=== PATIENT | female | born 1970 | race Asian ===

== ENCOUNTER 2020-06-07 13:55 | Emergency (ER) | payer OTHER ==
[2020-06-07 14:06] VITALS: BMI 23.0
[2020-06-07 16:14] LABS: BASO % 0.5 % (0-2.0); EOS % 0.8 % (0-4.5); HEMATOCRIT 35.9 % (32.4-45.2); HEMOGLOBIN 12.1 GM/dL (10.7-15.3); LYMPH % 28.8 % (8-40); MCH 29.8 pg (25.7-33.7); MCHC 33.7 g/dl (32.0-36.0); MEAN CELL VOLUME 88.5 fl (80-96); MEAN PLT VOLUME 8.6 fl (7.5-11.1); MONO % 6.8 % (3.8-10.2); NEUT % 63.1 % (42.8-82.8); PLATELET COUNT 252 K/MM3 (134-434); RBC 4.06 M/mm3 (3.60-5.2); RDW 11.9 % (11.6-15.6); WHITE BLOOD COUNT 5.5 K/mm3 (4.0-10.0)
[2020-06-07 16:20] LABS: INR 0.95 (0.83-1.09); PROTHROMBIN TIME (PATIENT) 11.7 SEC (9.7-13.0)
[2020-06-07 16:22] LABS: ACTIVATED PTT 29.5 SECONDS (25.2-36.5)
[2020-06-07 16:25] LABS: VENOUS BASE EXCESS 0.8 mmol/L (-2-2); VENOUS PCO2 51.8 mmHg (38-52); VENOUS PH 7.346 (7.310-7.410)
[2020-06-07 16:34] LABS: CHLORIDE 104 mmol/L (98-107); POTASSIUM 3.6 mmol/L (3.5-5.1); SODIUM 140 mmol/L (136-145)
[2020-06-07 16:36] LABS: ALBUMIN 3.5 g/dl (3.4-5.0); ANION GAP 8 MMOL/L (8-16); BLOOD UREA NITROGEN 8.3 mg/dL (7-18); CO2 29 mmol/L (21-32); GLUCOSE,RANDOM 254 mg/dL (74-106)
[2020-06-07 16:38] LABS: BILIRUBIN,DIRECT 0.2 mg/dL (0.0-0.2); SGPT/ALT 55 U/L (13-61)
[2020-06-07 16:39] LABS: CREATININE 0.6 mg/dL (0.55-1.3); SGOT/AST 29 U/L (15-37)
[2020-06-07 16:41] LABS: ALK PHOS 102 U/L (45-117); BILIRUBIN,TOTAL 0.2 mg/dL (0.2-1); LDH 266 U/L (84-246)
[2020-06-07] MEDS ORDERED: BAMLANIVIMAB 700 MG in SODIUM CHLORIDE 180 ML IVPB ONE (16:49)
[2020-06-07] MEDS ORDERED: ACETAMINOPHEN 500 MG TABLET (FP) PO ONE (17:05)
[2020-06-07] MEDS ORDERED: ACETAMINOPHEN 325 MG TABLET (FP) ONE (17:36)
[2020-06-07 18:37] VITALS: TEMP 98.6
[2020-06-07 21:01] VITALS: BP 160/96; PULSE 92
== END 2020-06-07 21:00 | disposition home or self-care (01) ==
LOC: JER 13:55
PROC: 3E0337Z Introduction of Electrolytic and Water Balance Substance into Peripheral Vein, Percutaneous Approach (ICD-10-PCS; principal; 2020-06-07)
DX: U07.1 COVID-19 (principal); R91.8 Other nonspecific abnormal finding of lung field
CPT/HCPCS: 36415; 71045-TC-FY; 80053; 82248; 82550; 82728; 82803; 83605; 83615; 84484; 85025; 85379; 85610; 85730; 86140; 93005; 93010; 99285-25; C9803; Q0239; U0003

== ENCOUNTER → 2022-08-05 | Day surgery (SDC) | payer OTHER | END | disposition home or self-care (01) | LOC: JRADIR 09:57 | PROVIDERS: ATTEND Internal Medicine Endocrinology, Diabetes & Metabolism | PROC: 0G9H3ZX Drainage of Right Thyroid Gland Lobe, Percutaneous Approach, Diagnostic (ICD-10-PCS; principal; 2022-08-05) | DX: E04.1 Nontoxic single thyroid nodule (principal) | CPT/HCPCS: 10005; 76942; 88173; 88305-TC ==

== ENCOUNTER 2023-11-20 19:08 | Emergency (ER) | payer OTHER ==
[2023-11-20 19:16] VITALS: BP 137/46; PULSE 98; RESP 20; TEMP 98; BMI 23.0
== END 2023-11-20 20:58 | disposition home or self-care (01) ==
LOC: JERFT 19:08 → JER 19:08 → JERFT 20:58
DX: S82.832A Other fracture of upper and lower end of left fibula, initial encounter for closed fracture (principal); V86.55XA Driver of 3- or 4- wheeled all-terrain vehicle (ATV) injured in nontraffic accident, initial encounter
CPT/HCPCS: 73610-TC-LT-FY; 73630-TC-LT; 99283-25

== ENCOUNTER 2023-11-26 06:01 | Day surgery (SDC) | payer OTHER ==
[2023-11-25 09:58] VITALS: BMI 23.0
[2023-11-26] MEDS ORDERED: MIDAZOLAM HCL 2 MG/2 ML SINGLE DOSE VIAL ONE ×2 (07:05→09:45)
[2023-11-26] MEDS ORDERED: PROPOFOL 20 ML ONE ×2 (07:05→09:46)
[2023-11-26] MEDS ORDERED: BUPIVACAINE LIPOSOME/PF (EXPAREL) 266 MG/20 ML VIAL ONE (07:14)
[2023-11-26] MEDS ORDERED: BUPIVACAINE HCL/PF 0.5% (5 MG/ML) 30 ML VIAL IJ ONE (07:14)
[2023-11-26] MEDS ORDERED: ACETAMINOPHEN INJECTION 100 ML IVPB ONE (07:14)
[2023-11-26] MEDS ORDERED: ONDANSETRON 4 MG/2 ML VIAL IVPUSH PRN (07:44)
[2023-11-26] MEDS ORDERED: ACETAMINOPHEN 325 MG TABLET (FP) PO PRN (07:44)
[2023-11-26] MEDS ORDERED: oxyCODONE HCL 5 MG TABLET PO PRN ×2 (07:44)
[2023-11-26] MEDS ORDERED: LACTATED RINGERS SOLUTION 1,000 ML IV SCH (07:45)
[2023-11-26] MEDS ORDERED: KETOROLAC TROMETHAMINE 30 MG/1 ML VIAL ONE (08:47)
[2023-11-26] MEDS ORDERED: TRANEXAMIC ACID 1000 MG/10 ML VIAL ONE (08:47)
[2023-11-26] MEDS ORDERED: ONDANSETRON 4 MG/2 ML VIAL ONE (08:47)
[2023-11-26] MEDS ORDERED: DEXAMETHASONE SOD PHOSPHATE 4 MG/1 ML VIAL ONE (08:47)
[2023-11-26] MEDS ORDERED: ceFAZolin SODIUM 1 GM VIAL ONE ×2 (08:47)
[2023-11-26 12:40] VITALS: TEMP 97
[2023-11-26 14:22] VITALS: BP 106/72; PULSE 70; RESP 16
== END 2023-11-26 14:00 | disposition home or self-care (01) ==
LOC: FASU 06:01
PROVIDERS: ATTEND Orthopaedic Surgery Sports Medicine
PROC: 0QSK04Z Reposition Left Fibula with Internal Fixation Device, Open Approach (ICD-10-PCS; principal; 2023-11-26 09:10)
DX: S82.832A Other fracture of upper and lower end of left fibula, initial encounter for closed fracture (principal); X58.XXXA Exposure to other specified factors, initial encounter; Y93.9 Activity, unspecified; Y92.9 Unspecified place or not applicable
CPT/HCPCS: 27792; C1713; 36415; 73610-TC-LT-FY; 82010; 82962; 94760; J0131

== ENCOUNTER 2023-12-18 23:43 | Inpatient (IN) | payer OTHER ==
[2023-12-19 01:49] VITALS: BMI 23.0
[2023-12-19 02:12] LABS: BASO % 0.9 % (0-2.0); EOS % 4.4 % (0-4.5); HEMATOCRIT 38.7 % (32.4-45.2); HEMOGLOBIN 12.8 GM/dL (10.7-15.3); LYMPH % 43.1 % (8-40); MCH 29.2 pg (25.7-33.7); MCHC 33.1 g/dl (32.0-36.0); MEAN CELL VOLUME 88.2 fl (80-96); MEAN PLT VOLUME 8.6 fl (7.5-11.1); MONO % 6.5 % (3.8-10.2); NEUT % 45.1 % (42.8-82.8); PLATELET COUNT 256 10^3/uL (134-434); RBC 4.39 M/mm3 (3.60-5.2); RDW 13.5 % (11.6-15.6); WHITE BLOOD COUNT 6.3 K/mm3 (4.0-10.0)
[2023-12-19] MEDS ORDERED: VANCOMYCIN 1,000 MG VIAL (RESTRICTED TO ID ONLY) ONE (02:22)
[2023-12-19] MEDS: VANCOMYCIN 1,000 MG in DEXTROSE 5%-WATER - 250 ML IVPB ONE (02:44)
[2023-12-19 03:04] LABS: BILIRUBIN,TOTAL 0.2 mg/dL (0.2-1); BLOOD UREA NITROGEN 18.7 mg/dL (7-18); CALCIUM 9.9 mg/dL (8.5-10.1); CREATININE 0.7 mg/dL (0.55-1.3); POTASSIUM 4.1 mmol/L (3.5-5.1); TOT PROT 7.4 g/dl (6.4-8.2)
[2023-12-19] MEDS ORDERED: ACETAMINOPHEN INJECTION 100 ML IVPB ONE (03:32)
[2023-12-19] MEDS: ACETAMINOPHEN 1000 MG/100 ML BAG IVPB ONE (03:38)
[2023-12-19] MEDS: KETOROLAC TROMETHAMINE 15 MG/ML VIAL IVPUSH ONE (06:58)
[2023-12-19] MEDS: ACETAMINOPHEN 325 MG TABLET (FP) PO ONE (08:18)
[2023-12-19 08:54] LABS: ANION GAP 8 mmol/L (4-13); CALCIUM 9.4 mg/dl (8.5-10.1); CHLORIDE 104 mmol/L (98-107); CO2 28 mmol/L (21-32); CREATININE 0.6 mg/dl (0.6-1.3); GLUCOSE,RANDOM 136 mg/dl (74-106); MAGNESIUM 2.1 mg/dL (1.8-2.4); SODIUM 140 mmol/L (136-145)
[2023-12-19 09:44] LABS: BASO % 0.7 % (0-2.0); EOS % 3.8 % (0-4.5); HEMATOCRIT 36.4 % (32.4-45.2); HEMOGLOBIN 12.2 GM/dL (10.7-15.3); LYMPH % 39.7 % (8-40); MCH 29.6 pg (25.7-33.7); MCHC 33.6 g/dl (32.0-36.0); MEAN CELL VOLUME 88.2 fl (80-96); MEAN PLT VOLUME 8.8 fl (7.5-11.1); MONO % 6.1 % (3.8-10.2); NEUT % 49.7 % (42.8-82.8); PLATELET COUNT 227 10^3/uL (134-434); RBC 4.13 M/mm3 (3.60-5.2); RDW 13.4 % (11.6-15.6); WHITE BLOOD COUNT 6.2 K/mm3 (4.0-10.0)
[2023-12-19] MEDS: ENOXAPARIN NA (PORCINE) 40 MG/0.4 ML DISP.SYRIN SQ SCH (10:33)
[2023-12-19] MEDS: diphenhydrAMINE HCL 25 MG CAPSULE (FP) PO ONE (14:40)
[2023-12-19] MEDS: CEFAZOLIN 1 GM in DEXTROSE 5%-WATER - 50 ML IVPB SCH (14:40)
[2023-12-19] MEDS: SERTRALINE HCL 25 MG TABLET (FP) PO SCH (14:40)
[2023-12-19] MEDS: LOSARTAN POTASSIUM 50 MG TABLET PO SCH (14:40)
[2023-12-19] MEDS: INSULIN ASPART SLIDING SCALE (NOVOLOG) 1 VIAL SQ SCH (16:50)
[2023-12-19] MEDS: CARVEDILOL 12.5 MG TABLET (FP) PO SCH (21:21)
[2023-12-19] MEDS ORDERED: INSULIN ASPART SLIDING SCALE (NOVOLOG) 1 VIAL SQ ONE (22:03)
[2023-12-19] MEDS: ACETAMINOPHEN 500 MG TABLET (FP) PO ONE (22:05)
[2023-12-20] MEDS ORDERED: INSULIN ASPART SLIDING SCALE (NOVOLOG) 1 VIAL SQ ONE (07:01)
[2023-12-20 08:34] LABS: BASO % 0.9 % (0-2.0); EOS % 3.4 % (0-4.5); HEMATOCRIT 38.2 % (32.4-45.2); HEMOGLOBIN 12.8 GM/dL (10.7-15.3); LYMPH % 42.9 % (8-40); MCH 29.5 pg (25.7-33.7); MCHC 33.5 g/dl (32.0-36.0); MEAN CELL VOLUME 88.1 fl (80-96); MEAN PLT VOLUME 8.7 fl (7.5-11.1); MONO % 6.8 % (3.8-10.2); PLATELET COUNT 216 10^3/uL (134-434); RBC 4.33 M/mm3 (3.60-5.2); RDW 13.6 % (11.6-15.6); WHITE BLOOD COUNT 5.1 K/mm3 (4.0-10.0)
[2023-12-20 09:15] LABS: CALCIUM 9.4 mg/dl (8.5-10.1); CREATININE 0.5 mg/dl (0.6-1.3); POTASSIUM 4.3 mmol/L (3.5-5.1)
[2023-12-20] MEDS: ACETAMINOPHEN 325 MG TABLET (FP) PO PRN (15:14)
[2023-12-20] MEDS: diphenhydrAMINE HCL 25 MG CAPSULE (FP) PO ONE (22:02)
[2023-12-21 09:53] LABS: ALBUMIN 3.9 g/dl (3.4-5.0); ALK PHOS 80 U/L (45-117); ANION GAP 9 mmol/L (4-13); BILIRUBIN,TOTAL 0.4 mg/dl (0.2-1); CALCIUM 9.1 mg/dl (8.5-10.1); CHLORIDE 101 mmol/L (98-107); CO2 27 mmol/L (21-32); CREATININE 0.5 mg/dl (0.6-1.3); GLUCOSE,RANDOM 295 mg/dl (74-106); POTASSIUM 3.8 mmol/L (3.5-5.1); SGOT/AST 14 U/L (15-37); SGPT/ALT 25 U/L (7-52); SODIUM 137 mmol/L (136-145); TOT PROT 6.2 g/dl (6.4-8.2)
[2023-12-21] MEDS: INSULIN (LEVEMIR) 100 UNITS/ML UNITS SQ SCH (10:04)
[2023-12-21 10:46] LABS: HEMATOCRIT 38.1 % (32.4-45.2); HEMOGLOBIN 12.4 G/dL (10.7-15.3); MCH 29.4 pg (25.7-33.7); MCHC 32.4 g/dl (32.0-36.0); MEAN CELL VOLUME 90.6 fl (80-96); PLATELET COUNT 205.8 10^3/uL (134-434); RDW 13.6 % (11.6-15.6); WHITE BLOOD COUNT 5.5 10^3/uL (4.0-10.8)
[2023-12-21] MEDS: diphenhydrAMINE HCL 50 MG CAPSULE PO ONE (21:23)
[2023-12-21] MEDS: diphenhydrAMINE HCL 25 MG CAPSULE (FP) PO ONE (21:56)
[2023-12-22] MEDS: diphenhydrAMINE HCL 25 MG CAPSULE (FP) PO ONE (01:33)
[2023-12-22 09:24] VITALS: BP 133/72; PULSE 77; RESP 18; TEMP 98.4
[2023-12-22 10:12] LABS: BASO % 0.6 % (0-2.0); HEMATOCRIT 40.2 % (32.4-45.2); HEMOGLOBIN 13.5 GM/dL (10.7-15.3); LYMPH % 44.3 % (8-40); MCH 29.7 pg (25.7-33.7); MCHC 33.4 g/dl (32.0-36.0); MEAN CELL VOLUME 88.9 fl (80-96); MEAN PLT VOLUME 8.6 fl (7.5-11.1); MONO % 5.7 % (3.8-10.2); NEUT % 46.4 % (42.8-82.8); PLATELET COUNT 255 10^3/uL (134-434); RBC 4.52 M/mm3 (3.60-5.2); RDW 13.4 % (11.6-15.6); WHITE BLOOD COUNT 6.2 K/mm3 (4.0-10.0)
[2023-12-22 10:35] LABS: ALBUMIN 4.4 g/dl (3.4-5.0); ALK PHOS 85 U/L (45-117); ANION GAP 8 mmol/L (4-13); BILIRUBIN,TOTAL 0.4 mg/dl (0.2-1); CALCIUM 9.8 mg/dl (8.5-10.1); CHLORIDE 104 mmol/L (98-107); CO2 32 mmol/L (21-32); CREATININE 0.6 mg/dl (0.6-1.3); GLUCOSE,RANDOM 211 mg/dl (74-106); POTASSIUM 3.8 mmol/L (3.5-5.1); SGOT/AST 19 U/L (15-37); SGPT/ALT 29 U/L (7-52); SODIUM 144 mmol/L (136-145); TOT PROT 7.3 g/dl (6.4-8.2)
== END 2023-12-22 12:36 | disposition home or self-care (01) | DRG 863 ==
LOC: FER 23:43 → FM/S 12-19 03:54
PROVIDERS: ADMIT Internal Medicine
DX: T81.41XA Infection following a procedure, superficial incisional surgical site, initial encounter (principal); M00.9 Pyogenic arthritis, unspecified; L03.116 Cellulitis of left lower limb; I10 Essential (primary) hypertension; D64.9 Anemia, unspecified; E03.9 Hypothyroidism, unspecified; E11.9 Type 2 diabetes mellitus without complications; F32.A Depression, unspecified; E78.5 Hyperlipidemia, unspecified; Y83.8 Other surgical procedures as the cause of abnormal reaction of the patient, or of later complication, without mention of misadventure at the time of the procedure
CPT/HCPCS: 36415; 73610-TC-LT-FY; 80048; 80053; 82962; 83735; 85025; 85027; 87040; 99285-25; J0131